=== PATIENT | male | born 2000 | race Caucasian/White ===

== ENCOUNTER 2020-06-11 11:07 | Emergency (ER) | payer OTHER, SELFPAY ==
--- NOTE | ~2020-06-11 | XR_ITS ---
XR knee RT min 4V DATE: 06/11/2020 12:00 INDICATION: Lateral right knee pain following injury TECHNIQUE: 4 views including crosstable lateral COMPARISON: None FINDINGS: No fracture or dislocation. Small knee joint effusion is not excluded. Joint spaces are wel l preserved. No periosteal reaction or bone destruction. No chondrocalcinosis or radiopaque intra-art icular loose body. IMPRESSION: Cannot exclude small knee joint effusion; no significant bony abnormality Reviewed, dictated and finalized at location A. STRIPPER IMPRESSION: Cannot exclude small knee joint effusion; no significant bony abnor mality
[2020-06-11 11:16] VITALS: BP 127/76; PULSE 79; RESP 16; TEMP 36.9; O2SAT 96
--- NOTE | 2020-06-11 11:42 | ED.GENADULT ---
HPI - General Adult General Chief complaint: Extremity Injury, Lower Stated complaint: right knee pain Time Seen by Provider: 06/11/20 11:26 Source: patient Mode of arrival: ambulatory Limitations: no limitations History of Present Illness HPI narrative: Patient is a 20-year-old male who presents with 3 weeks duration of right lateral knee pain patient injured the knee while participating in contact sports patient has not been seen for this complaint presents in no distress. Patient notes the pain is worse with movement denies similar occurrence in the past or other injuries Related Data Allergies Allergy/AdvReac Type Severity Reaction Status Date / Time No Known Allergies Allergy Unknown Unverified 02/07/14 17:45 Review of Systems Review of Systems: All systems reviewed & are unremarkable except as noted in HPI and below PMFSH Social History Social History (Updated 06/11/20 @ 11:43 by Binh Herrera PA-C) Smoking status: Never smoker Gender identity (if verbalized by the patient): Male Exam Narrative: Exam Narrative: GENERAL: Well-appearing, well-nourished, and in no acute distress. HEAD: Normocephalic, atraumatic. EYES: PERRLA and EOMI. ENT: Nares clear, no rhinorrhea or epistaxis. Mucous membranes moist. EXTREMITIES: Normal range of motion. No edema. Lateral aspect of the knee with tenderness no deformities noted SKIN: Warm, dry, no rash. NEURO: No focal deficits. Alert and oriented x3. Neurovascularly intact. Capillary refill less than 2-second PSYCH: Normal mood and affect. Course Course Emergency Course: Patient was evaluated in the emergency department for knee injury will be discharged home with outpatient follow-up with orthopedic surgery Vital Signs Vital signs: Vital Signs Temperature 98.4 F 06/11/20 11:16 Pulse Rate 79 06/11/20 11:16 Respiratory Rate 16 06/11/20 11:16 Blood Pressure 127/76 06/11/20 11:16 Pulse Oximetry 96 06/11/20 11:16 Temperature 98.4 F 06/11/20 11:16 Pulse Rate 79 06/11/20 11:16 Respiratory Rate 16 06/11/20 11:16 Blood Pressure 127/76 06/11/20 11:16 Pulse Oximetry 96 06/11/20 11:16 Medical Decision Making MDM Narrative Medical decision making narrative: Patients injury or pain is consistent with musculoskeletal etiology. No signs of neurological or vascular compromise on exam. Compartments and tisues are soft without signs of compartment syndrome. Pain is felt appropriate for further evaluation on an outpatient basis. Vital Signs Vital Signs: Vital Signs Temperature 98.4 F 06/11/20 11:16 Pulse Rate 79 06/11/20 11:16 Respiratory Rate 16 06/11/20 11:16 Blood Pressure 127/76 06/11/20 11:16 Pulse Oximetry 96 06/11/20 11:16 Temperature 98.4 F 06/11/20 11:16 Pulse Rate 79 06/11/20 11:16 Respiratory Rate 16 06/11/20 11:16 Blood Pressure 127/76 06/11/20 11:16 Pulse Oximetry 96 06/11/20 11:16 Imaging Data Radiologist's impression: ITS Impressions Knee X-Ray 06/11/20 12:01 IMPRESSION: Cannot exclude small knee joint effusion; no significant bony abnormality Discharge Plan Discharge Clinical Impression: Injury of knee, right Patient Disposition: Home, Self-Care Condition: Stable Instructions: Antibiotic Form, Arthralgia (ED) Additional Instructions: Wear brace and use crutches. No weight on the affected leg until able to bear weight without pain. Ice and elevate extremity. Pain medication as needed and directed. Follow up with your doctor for further care in the next 5 to 7 days. return if symptoms worsen or concerns Follow-up/Referrals: Umair Hilario MD [Primary Care Provider] - Fidencio Tejeda MD [Physician] -
[2020-06-11 12:50] VITALS: BP 130/74; PULSE 80; RESP 18; O2SAT 97
== END 2020-06-11 12:51 | disposition home or self-care (01) ==
PROVIDERS: Emergency Provider Emergency Medicine; PCP Pediatrics
DX: S89.91XA Unspecified injury of right lower leg, initial encounter (principal); W22.8XXA Striking against or struck by other objects, initial encounter; Y93.75 Activity, martial arts
CPT/HCPCS: 73564; 99283

== ENCOUNTER 2021-04-28 17:44 | Observation (INO) | payer OTHER, SELFPAY ==
--- NOTE | ~2021-04-28 | CT_ITS ---
EXAMINATION: CT chest abdomen pelvis wo con DATE: 04/28/2021 20:37 WATER SERVICE SUPERVISOR INDICATION: Leukocytosis, nausea and vomiting. Shortness of breath. TECHNIQUE: Computed tomography (CT) of the chest, abdomen, and pelvis was performed without intraveno us contrast. The dose-length product was 410.69 mGy-cm. Automated exposure control and iterative stanley nstruction technique were employed. COMPARISON: None FINDINGS: CHEST CT: Heart size normal. No thoracic lymphadenopathy. No significant pleural or pericardial effusion. No ev idence for aortic aneurysm. There is residual thymic tissue. No endobronchial lesion. No focal airspa ce disease. No pulmonary nodules or masses. ABDOMEN/PELVIS CT: The liver, spleen, pancreas, adrenal glands and kidneys are unremarkable. Nonobstructive bowel gas pa ttern. Normal appendix. No abnormal pelvic masses or fluid collections. No free air or free fluid. Ga llbladder is present. No significant bone or joint abnormality. IMPRESSION: 1. No acute abnormality of the chest, abdomen or pelvis. Reviewed, dictated and finalized at location A. R SERVICE SUPERVISOR
--- NOTE | ~2021-04-28 | XR_ITS ---
EXAMINATION: XR chest 2V 04/28/2021 18:56 INDICATION: Vomiting and nausea PROCEDURE: 2 view chest COMPARISON: No prior studies for comparison. FINDINGS: The lungs are clear. The cardiomediastinal silhouette is within normal limits. There are no pleural effusions. There is no pneumothorax suspected. IMPRESSION: 1: NO ACUTE CARDIOPULMONARY DISEASE. Reviewed, dictated and finalized at location A. ICAL PRODUCT SALES CONSULTANT
[2021-04-28 17:46] VITALS: BP 132/80; PULSE 98; RESP 24; TEMP 36.7; O2SAT 98
--- NOTE | 2021-04-28 18:26 | ECG_ITS ---
Measurements Intervals [place] Rate: 87 P: 1 SD: 132 QRS: 95 QRSD: 107 T: 15 QT: 389 QTc: 469 Interpretive Statements ATRIAL TACHYCARDIA WITH NORMAL VENTRICULAR RESPONSE RIGHT AXIS DEVIATION DELAYED PRECORDIAL R/S TRANSITION BORDERLINE ST-T WAVE ABNORMALITY- INFERIOR LEADS BASELINE ARTIFACT- I, II, III, AVR, AVL, AVF ABNORMAL ECG Electronically Signed On 04-28-2021 20:21:26 PRINTING AND STAMPING SUPERVISOR by Igor Wong D.O.
[2021-04-28] MEDS: SODIUM CHLORIDE 0.9% IV 1,000 ML 999 ML IV CONT ×3 (19:02→20:52)
[2021-04-28 19:09] LABS: Basophils Absolute Auto 0.1 K/mm3 (0.0-0.1); Basophils Percent Auto 0.8 % (0.2-1.2); Hematocrit 51.2 % (42.0-52.0); Immature Granulocyte Absolute 0.74 K/mm3 (0.00-0.031); Lymphocytes Absolute Auto 0.93 K/mm3 (0.9-3.2); Mean Corpuscular HGB Conc 35.2 g/dl (32-36); Mean Corpuscular Volume 93.9 fl (80-100); Mean Platelet Volume 9.3 fl (7.4-10.4); Monocytes Absolute Auto 1.4 K/mm3 (0.1-0.6); Monocytes Percent Auto 7.6 % (2.6-8.5); Neutrophils Absolute Auto 15.4 K/mm3 (1.3-6.7); Neutrophils Percent Auto 82.6 % (45.5-73.1); Platelet Count Result 268 k/mm3 (150-375); Red Blood Count 5.45 M/mm3 (4.6-6.20); White Blood Count 18.6 K/mm3 (4.5-10.0)
[2021-04-28] MEDS: ONDANSETRON INJ 4 MG/2 ML VIAL IV PUSH (19:16)
[2021-04-28] MEDS: FAMOTIDINE 20 MG/2 ML VIAL IV PUSH (19:16)
--- NOTE | 2021-04-28 19:45 | PC.NURSE ---
This nurse went into room to explain to patient that a flu swab and covid swab was ordered by the ERP. Patient refused swabs and stated I am ok, I don't need that. I don't want that. automotive sales representative and ERP notified.
[2021-04-28 19:50] LABS: Troponin I < 0.012 ng/mL (0.000-0.034)
[2021-04-28 19:52] LABS: Alanine Aminotransferase 39 U/L (4-50); Albumin Level 5.8 g/dL (3.5-5.1); Alkaline Phosphatase 81 U/L (38-126); Anion Gap 26 mmol/L (8-16); Aspartate Amino Transferase 41 U/L (17-59); Blood Urea Nitrogen 42 mg/dL (9-20); Calcium 10.6 mg/dL (8.4-10.2); Carbon Dioxide 21 mmol/L (22-30); Chloride 90 mmol/L (98-107); Creatine Kinase 205 U/L (55-170); Estimated CRCL calculation 28 ml/min; Estimated Glomerular Filt Rate 23; Glucose 209 mg/dL (65-110); Lipase 72 U/L (23-300); Potassium 4.3 mmol/L (3.4-5.0); Sodium 137 mmol/L (137-145)
[2021-04-28 20:10] LABS: Add Urine Microscopic? YES; Appearance Urine Cloudy (Clear); Bacteria Urine Trace /hpf; Bilirubin Urine 1+ (Negative); Blood Urine 1+ (Negative); Color Urine Amber (Yellow); Glucose Urine UA Negative (Negative); Hyaline Casts Urine 50+ /lpf; Ketones Urine Trace mg/dL (Negative); Leukocyte Esterase Ur Negative LEU/UL (Negative); Mucus Urine Few /lpf; Nitrate Urine Negative (Negative); Protein Urine 1+ mg/dL (Negative); Squamous Epithelial Cell Urine Moderate /hpf (Few); WBC Clumps Urine Present /HPF; WBC Urine >75 /hpf
[2021-04-28 20:54] VITALS: BP 139/73; PULSE 77; RESP 17; TEMP 37.1; O2SAT 100
[2021-04-28 21:02] LABS: Amphetamine Screen Urine Negative (Negative); Barbiturate Screen Urine Negative (Negative); Benzodiazepines Screen Urine Negative (Negative); Cannabinoid Screen Urine Positive (Negative); Cocaine Screen Urine Negative (Negative); Methadone Screen Urine Negative (Negative); Opiate Screen Urine Negative (Negative); Phencyclidine Screen Urine Negative (Negative)
--- NOTE | 2021-04-28 21:30 | ED.GENADULT ---
HPI - General Adult General Chief complaint: Nausea/Vomiting/Diarrhea Stated complaint: n/v Time Seen by Provider: 04/28/21 18:18 Source: patient Mode of arrival: ambulatory Limitations: no limitations History of Present Illness HPI narrative: Patient presents for evaluation of abdominal pain, nausea and vomiting since 2300 last night. He indicates he was attempting to lose weight for a boxing competition today. An attempt to do so, he wrapped himself in plastic bags yesterday from all [id number]. He thought this would increase sweating and thereby decrease his weight. Since 2300 last night he has been unable to keep any food or drink down. He has tried crackers, Pedialyte, Gatorade without success. He states pain is in the epigastric region, is cramping, and severe. She reports shortness of breath without chest pain or cough. No fevers or chills. While waiting in the emergency department waiting room, he contacted 911 and attempt to be seen faster. He does smoke marijuana but states he does not use any illicit drugs. Denies any change in bowel pattern. No urinary symptoms. No history of similar symptoms. No additional complaints or concerns. Related Data Allergies Allergy/AdvReac Type Severity Reaction Status Date / Time No Known Allergies Allergy Unknown Unverified 02/07/14 17:45 Review of Systems Review of Systems: CONSTITUTIONAL: Denies fever, chills, or sweats. EYES: Denies visual changes, redness, or discharge. ENT: Denies rhinorrhea, congestion, sore throat, or otalgia. CARDIOVASCULAR: Denies chest pain, palpitations, or edema. RESPIRATORY: Reports shortness of breath. Denies cough GASTROINTESTINAL: Reports abdominal pain, nausea, vomiting. Denies change in bowel pattern. GENITOURINARY: Denies dysuria or hematuria. SKIN: Denies rash or itching. MUSCULOSKELETAL: Denies back pain, joint pain, or myalgia. NEUROLOGIC: Denies headache, numbness, dizziness, or weakness. PSYCHIATRIC: Denies anxiety or depression. [facility] Past Medical History Medical History (Updated 04/28/21 @ 21:39 by Abe Younger, ROBINSON, ) No pertinent past medical history Surgical History Surgical History No pertinent past surgical history Family History Family History Mother No pertinent past medical history Social History Social History Smoking status: Never smoker Substance use: current Substance use type: marijuana Living arrangements: with family Gender identity (if verbalized by the patient): Male Sexual Orientation (if Verbalized by the Patient): Straight or Heterosexual Spiritual care concerns: No Exam Narrative: GENERAL: Ill-appearing, generalized pallor, diaphoretic. Actively dry heaving HEAD: Normocephalic, atraumatic. EYES: PERRLA and EOMI. ENT: Nares clear, no rhinorrhea or epistaxis. Mucous membranes moist. Oropharynx without tonsillar hypertrophy exudate or other lesions. Bilateral TMs pearly randall nonbulging NECK: Supple. No adenopathy or masses. No carotid bruits or JVD CHEST: Clear to auscultation. No respiratory distress. No wheezes rales or rhonchi HEART: Regular rate and rhythm. No murmur heard. Normal peripheral pulses. ABDOMEN: Soft, tenderness noted in epigastric region without rebound or guarding. nondistended, normal active bowel sounds. EXTREMITIES: Normal range of motion. No edema. SKIN: Warm, dry, no rash. NEURO: No focal deficits. Alert and oriented x3. PSYCH: Normal mood and affect. Course Course Emergency Course: This is a 20-year-old male that presented with complaints of abdominal pain, nausea, vomiting since 2300 last night. Notable labs were white count of 18,000, creatinine of 3.4, BUN of 42 and GFR of 23. He was hydrated in the department. Noncontrast CT chest abdomen pelvis was obtained due to a
--- NOTE | 2021-04-28 21:38 | ECG_ITS ---
Measurements Intervals [place] Rate: 81 P: 16 NC: 100 QRS: 82 QRSD: 108 T: -32 QT: 388 QTc: 453 Interpretive Statements ATRIAL TACHYCARDIA WITH NORMAL VENTRICULAR RESPONSE BORDERLINE ST-T WAVE ABNORMALITY- ANT/INF LEADS ABNORMAL ECG Electronically Signed On 04-29-2021 6:15:58 BOX SEALING MACHINE FEEDER by Igor Wong D.O.
[2021-04-28 21:52] VITALS: PULSE 84; RESP 14; O2SAT 99
[2021-04-28 22:00] VITALS: BP 126/71; PULSE 74; RESP 15; O2SAT 100
[2021-04-28] MEDS: SODIUM CHLORIDE 0.9% IV 1,000 ML 125 ML IV CONT (22:34)
--- NOTE | 2021-04-28 23:32 | PM.IMHP ---
H&P: HPI History of Present Illness Date/Time: 04/28/21 23:32 Chief Complaint: Nausea vomiting Narrative: Patient presents to the ER today with not feeling well and nausea vomiting since last night. He states that he was working out for torn went today he was wearing sweat suit to sweat insult loose some weight and was working out on that from 9:00 p.m. to 10:30 p.m.. He sweated quite a bit on that workout following which he was not feeling well and throughout the night he was getting nauseous and was unable to keep his food down. In the morning today he tried some crackers and Pedialyte and Gatorade to try to stay way from the hospital however the nausea vomiting was constant in will also hurting in his abdominal area and getting cramps in his legs and skin to the ER for evaluation. He denies any fever or chills or headache. He states that he initially went to [facility] but the wait was quite long and hence came to [facility]. Awaiting at [facility] he was not feeling well and hence contacted 911 to get seen faster. He ventrally got rolled into the room and was evaluated and evaluation noted elevated WBC count earlier 18,000 and a creatinine of 3.4 suggesting acute renal failure. He has been hydrated with couple L of saline along with nausea medicine and hence have been feeling better now. He actually asked me if you would be able to eat regular meal tonight as he has not eaten anything since yesterday evening. He denies any abdominal pain currently or chest pain or shortness of breath. Review of Systems Review of Systems: CONSTITUTIONAL: Denies fever, chills, or sweats. EYES: Denies visual changes, redness, or discharge. ENT: Denies rhinorrhea, congestion, sore throat, or otalgia. CARDIOVASCULAR: Denies chest pain, palpitations, or edema. RESPIRATORY: Reports shortness of breath. Denies cough GASTROINTESTINAL: Reports abdominal pain, nausea, vomiting. Denies change in bowel pattern. GENITOURINARY: Denies dysuria or hematuria. SKIN: Denies rash or itching. MUSCULOSKELETAL: Denies back pain, joint pain, or myalgia. NEUROLOGIC: Denies headache, numbness, dizziness, or weakness. PSYCHIATRIC: Denies anxiety or depression. [facility] Past Medical History Medical History (Updated 04/29/21 @ 01:06 by Shravan Corley MD) No pertinent past medical history Surgical History Surgical History No pertinent past surgical history Family History Family History Mother No pertinent past medical history Social History Social History Smoking status: Never smoker Substance use: current Substance use type: marijuana Living arrangements: with family Gender identity (if verbalized by the patient): Male Sexual Orientation (if Verbalized by the Patient): Straight or Heterosexual Spiritual care concerns: No Meds Home Medications and Allergies Allergies Allergy/AdvReac Type Severity Reaction Status Date / Time No Known Allergies Allergy Unknown Unverified 02/07/14 17:45 Vital Signs Vital Signs - 24 hr 04/28/21 17:46 04/28/21 20:54 04/28/21 21:52 Temperature 98.1 F 98.8 F Pulse Rate 98 77 84 Respiratory Rate 24 H 17 14 Blood Pressure 132/80 139/73 Pulse Oximetry 98 100 99 04/28/21 22:00 Temperature Pulse Rate 74 Respiratory Rate 15 Blood Pressure 126/71 Pulse Oximetry 100 Exam Narrative: GENERAL: Comfortable not in acute distress HEAD: Normocephalic, atraumatic. EYES: PERRLA and EOMI. ENT: Nares clear, no rhinorrhea or epistaxis. Mucous membranes moist. NECK: Supple. No adenopathy or masses. No carotid bruits or JVD CHEST: Clear to auscultation. No respiratory distress. No wheezes rales or rhonchi HEART: Regular rate and rhythm. No murmur heard. Normal peripheral pulses. ABDOMEN: Soft, nontender, non
[2021-04-28 23:37] VITALS: PULSE 69; RESP 14; O2SAT 99
[2021-04-28 23:45] VITALS: PULSE 69; RESP 16; O2SAT 99
[2021-04-29] VITALS (28 sets, daily range): BP systolic 109–139; BP diastolic 53–90; PULSE 57–82; RESP 13–21; TEMP 36.5–36.7; O2SAT 97–100; BMI 19.5
[2021-04-29] MEDS: SODIUM CHLORIDE 0.9% IV 1,000 ML 125 ML (06:27)
--- NOTE | 2021-04-29 06:54 | PC.NURSE ---
Phlebotomy in room drawing patient at this time.
--- NOTE | 2021-04-29 07:05 | PC.NURSE ---
Patient informed of no visitors due to refusing the covid swab. Patient verbalizes understanding.
[2021-04-29 07:14] LABS: Basophils Percent Auto 0.2 % (0.2-1.2); Eosinophils Percent Auto 0.2 % (0-4.4); Hematocrit 39.9 % (42.0-52.0); Immature Granulocyte Absolute 0.09 K/mm3 (0.00-0.031); Immature Granulocyte Percent A 0.7 % (0-0.5); Lymphocytes Absolute Auto 2.07 K/mm3 (0.9-3.2); Lymphocytes Percent Auto 16.8 % (18.3-44.2); Mean Corpuscular HGB Conc 34.6 g/dl (32-36); Mean Corpuscular Hemoglobin 33.2 pg (26-34); Mean Corpuscular Volume 95.9 fl (80-100); Monocytes Absolute Auto 2.1 K/mm3 (0.1-0.6); Monocytes Percent Auto 16.7 % (2.6-8.5); Neutrophils Absolute Auto 8.1 K/mm3 (1.3-6.7); Neutrophils Percent Auto 65.4 % (45.5-73.1); Platelet Count Result 190 k/mm3 (150-375); Red Blood Count 4.16 M/mm3 (4.6-6.20); Red Cell Distribution Width 13.2 % (11.5-14.5); White Blood Count 12.3 K/mm3 (4.5-10.0)
[2021-04-29 07:26] LABS: Alanine Aminotransferase 17 U/L (4-50); Albumin Level 4.1 g/dL (3.5-5.1); Alkaline Phosphatase 52 U/L (38-126); Anion Gap 7 mmol/L (8-16); Aspartate Amino Transferase 29 U/L (17-59); Bilirubin,Total 1.4 mg/dL (0.2-1.3); Blood Urea Nitrogen 26 mg/dL (9-20); Calcium 8.4 mg/dL (8.4-10.2); Carbon Dioxide 26 mmol/L (22-30); Chloride 103 mmol/L (98-107); Estimated CRCL calculation 84 ml/min; Estimated Glomerular Filt Rate > 60; Glucose 111 mg/dL (65-110); Potassium 3.9 mmol/L (3.4-5.0); Sodium 136 mmol/L (137-145)
--- NOTE | 2021-04-29 07:40 | ADMGEN ---
This patient, Kranthi Rodriguez, was admitted to [facility]. Patient/family oriented to hospital policies and general routines including ID bracelet, bed and alarms, visiting hours, pain management, procedures, bathroom and other care routines, personal items, smoking policy, room service/diet, and visiting hours. Information on how to activate the Rapid Response Team has been discussed. Patient/Family are encouraged to report perceived risks to care and to ask questions if they do not understand what they are told or what they should do.
[2021-04-29 08:28] LABS: EDCOVIDSCREEN Negative (Negative)
[2021-04-29 08:29] LABS: Hemoglobin 13.8 g/dL (14.0-18.0)
[2021-04-29] MEDS: HEPARIN SODIUM 5,000 UNITS/ML VIAL 5000 UNITS SUB-Q (09:51)
--- NOTE | 2021-04-29 14:45 | PM.IMPN ---
Progress Note: A&P Assessment and Plan (1) FATUMA (acute kidney injury): Code(s): N17.9 - Acute kidney failure, unspecified Status: Acute Assessment and Plan: Resolving non oliguric acute kidney injury. Patient does not have any medical condition. Baseline creatinine is presumed to be normal. Patient presented with acute renal failure creatinine 3.4 likely prerenal due to severe dehydration from sweating and workout; CK level is mildly elevated at 205. Received several boluses of IV fluid; repeat creatinine is 1.1 today. Patient is anxious to go home. Patient discharged home with instruction to drink 2 L of fluid over the next 24 hours. Plan to repeat BMP in 2-3 days. (2) Acute UTI: Code(s): N39.0 - Urinary tract infection, site not specified Status: Acute Assessment and Plan: Currently patient asymptomatic. Nitrate and leukocyte negative. Blood and urine cultures are pending at the time of this dictation. (3) Severe dehydration: Code(s): E86.0 - Dehydration Status: Acute Assessment and Plan: Patient was training for a sports performance. Patient instructed to hydrate himself regularly while exercising. Additional Plan # leukocytosis likely reactive. Repeat WBC today improved from 18.6 to 12.3. Patient is hemodynamically stable blood pressure 118/72. Patient is mildly bradycardic at 57, likely reflecting the fitness of his circulatory system. '# full code status Subjective Date/time seen: 04/29/21 14:00 S: Patient examined at the bedside. He is feeling lot better. He denies any complaints. Oral intake is preserved. Patient is anxious to go home. Review of Systems Review of Systems: All systems reviewed & are unremarkable except as noted in HPI and below Constitutional: Constitutional: Reports as per HPI and Reports no additional constitutional complaints Eyes: Eyes: Reports as per HPI, Reports no additional eye complaints and Denies blurry vision ENT: Reports system reviewed and no additional complaints, except as documented and Denies epistaxis Cardiovascular: Cardiovascular: Reports as per HPI, Reports no additional cardiovascular complaints and Denies lightheadedness Respiratory: Respiratory: Reports as per HPI and Denies no additional respiratory complaints Gastrointestinal: Gastrointestinal: Reports as per HPI, Denies diarrhea, Denies nausea and Denies vomiting Genitourinary: Genitourinary: Reports no additional male genitourinary complaints and Reports as per HPI Musculoskeletal: Musculoskeletal: Reports no additional musculoskeletal complaints and Reports as per HPI Integumentary/Breasts: Skin/Breast: Reports system reviewed and no additional complaints, except as docu and Reports as per HPI Neurologic: Reports system reviewed and no additional complaints, except as documented and Reports as per HPI Psychiatric: Psychiatric: Reports no additional psychiatric complaints and Reports as per HPI Exam Const: General: no acute distress HENMT: Mouth: Yes moist mucous membranes Eyes: Sclera: sclerae normal Pupils: Equal, round and reactive pupils present Neck: Lymphatic: lymphadenopathy not noted Resp: Effort & Inspection: normal respiratory effort Auscultation: clear to auscultation bilaterally, no crackles, no rales, no rhonchi and no wheezes Cardio: Rate: regular rate Rhythm: regular rhythm Heart sounds: no gallops, no murmurs and no rubs GI: Inspection: non-distended GI Palp: Yes Soft to palpation, No Tenderness to palpation present (GI) and No Guarding due to palpation present (GI) Percussion: Yes normal to percussion Auscultation: normal bowel sounds : Male General Exam: Yes normal external exam Urinary Catheter: Urinary Catheter: patent and draining and urine clear Skin: General skin exam: no rashes or lesions noted and no erythema Rashes: no rashes noted Wounds: wound noted Neuro: General: deep tendon reflexes 2+ bilaterally C
--- NOTE | 2021-04-29 14:50 | PM.DS ---
DS: Admitting Diagnosis Discharge Date 04/29/2021. Admitting Diagnosis (1) FATUMA (acute kidney injury): (2) Acute UTI: (3) Severe dehydration: (4) leukocytosis reactive DS: Discharge Diagnosis Discharge Diagnosis (1) FATUMA (acute kidney injury): Code(s): N17.9 - Acute kidney failure, unspecified Status: Acute Assessment and Plan: Resolving non oliguric acute kidney injury. Patient does not have any medical condition. Baseline creatinine is presumed to be normal. Patient presented with acute renal failure creatinine 3.4 likely prerenal due to severe dehydration from sweating and workout; CK level is mildly elevated at 205. Received several boluses of IV fluid; repeat creatinine is 1.1 today. Patient is anxious to go home. Patient discharged home with instruction to drink 2 L of fluid over the next 24 hours. Plan to repeat BMP in 2-3 days. (2) Acute UTI: Code(s): N39.0 - Urinary tract infection, site not specified Status: Acute Assessment and Plan: Currently patient asymptomatic. Nitrate and leukocyte negative. Blood and urine cultures are pending at the time of this dictation. (3) Severe dehydration: Code(s): E86.0 - Dehydration Status: Acute Assessment and Plan: Patient was training for a sports performance. Patient instructed to hydrate himself regularly while exercising. DS: Summary Hospital Course Reason for hospitalization: Nausea vomiting Hospital Course: Please refer to admission H&P. Briefly,patient presents to the ER on 04/28/2021 with not feeling well and nausea vomiting since last night. He states that he was working out to get ready for tournament; he was wearing sweat suit to sweat insult loose some weight and was working out on that from 9:00 p.m. to 10:30 p.m.. He sweated quite a bit on that workout following which he was not feeling well and throughout the night he was getting nauseous and was unable to keep his food down. In the morning today he tried some crackers and Pedialyte and Gatorade to try to stay way from the hospital however the nausea vomiting was constant in will also hurting in his abdominal area and getting cramps in his legs and skin to the ER for evaluation. He denies any fever or chills or headache. He states that he initially went to [facility] but the wait was quite long and hence came to [facility]. Awaiting at [facility] he was not feeling well and hence contacted 911 to get seen faster. He ventrally got rolled into the room and was evaluated and evaluation noted elevated WBC count earlier 18,000 and a creatinine of 3.4 suggesting acute renal failure. He has been hydrated with couple L of saline along with nausea medicine and hence have been feeling better now. He actually asked me if you would be able to eat regular meal tonight as he has not eaten anything since yesterday evening. He denies any abdominal pain currently or chest pain or shortness of breath. Patient was treated conservatively with aggressive IV fluid resuscitation. Kidney function improved overnight from BUN 42/3.4 to 26/1.1. Patient was anxious to go home. Patient was discharged with instruction to drink 3 L of fluid over the next 24 hours. Patient instructed to avoid any supplements, NSAIDs or high-protein diet. Patient to keep his fluid intake up to 2-3 L at all times to prevent acute kidney injuries. Will follow up with primary care provider in repeat labs 1 week post discharge. His kidney function he is expected to continue to improve with appropriate p.o. hydration. Status at Discharge Cognitive/behavioral status at discharge: At baseline Functional status at discharge: independent ambulation Overall status at discharge: patient is back to baseline Time Spent with Patient Time attestation: Total time spent providing and/or coordinating discharge services:31 min. Time spent: Greater than 30 minutes Exam Const: General: no acute distress HE
== END 2021-04-29 15:22 | disposition home or self-care (01) ==
LOC: ANHED 21:39 → ANH3MEDSUR 04-29 11:26
PROVIDERS: Admitting Provider Internal Medicine; Emergency Provider Nurse Practitioner; Visit Provider Internal Medicine
DX: N17.9 Acute kidney failure, unspecified (principal); E86.0 Dehydration; N39.0 Urinary tract infection, site not specified; F12.90 Cannabis use, unspecified, uncomplicated; D72.829 Elevated white blood cell count, unspecified; Z20.822 Contact with and (suspected) exposure to COVID-19
CPT/HCPCS: 36415; 71046; 71250; 74176; 80053; 80307; 81001; 82550; 83690; 84484; 85025; 87040; 87086; 87426; 93005; 96361; 96365; 96372; 96375; 99285; C9803; G0378; J0696; J1644; J2405; J7030